=== PATIENT | male | born 1965 | race Caucasian/White ===

== ENCOUNTER 2017-04-24 13:08 | Emergency (ER) | payer OTHER ==
[2017-04-24 13:19] VITALS: BMI 26.4
[2017-04-24] MEDS ORDERED: ZOFRAN INJ 4 MG VIAL IVP ONE ×2 (13:23→14:52)
[2017-04-24] MEDS ORDERED: MORPHINE SULFATE INJ 4 MG IVP ONE ×2 (13:23→14:53)
[2017-04-24] MEDS ORDERED: NITROSTAT SL PRN (13:24)
--- NOTE | 2017-04-24 13:25 | DR.CP ---
HPI - Time Seen Time seen: 13:17 - HPI Comment HPI Comment: PATIENT PRESENTS TO ED VIA EMS FROM [facility] WITH PRECORDIAL CHEST PRESSURE, NON RADIATING ASSOCIATED WITH SOB AND NAUSEA. HISTORY CAD S/P CABG 5 YRS AGO. - Complaint Chief Complaint Doctor Comments: CHEST PAIN SINCE 11:00 AM TODAY. - Reviewed Nurses Notes Review: Yes - Source History Provided: Patient, EMS - Mode of Arrival Mode of Arrival: EMS - Timing Came on: Suddenly Pain: Present Now - Duration Duration: Constant Duration: Hours - Location Location of Chest Pain: Left, Chest Chest Pain Radiation Location: None - Context Onset: At rest Cardiac Risk Factors: Smoker PE Risk Factors: None History of: Aspirin in last 24 hours, Other (CABG 5 YRS AGO.) Prehospital Care: Oxygen, IV, SL Nitro, ASA - Quality Quality: Pressure like - Severity Severity: Moderate - Modifying Factors Worsens: Nothing Impoves: Nothing - Associated Signs and Symptoms Associated Signs and Symptoms: Shortness of Breath, Palpitations, Nausea/ Vomiting ROS - Review of Systems Constitutional: Weakness, Fatigue. negative: Chills, Fever, Loss of Appetite Eyes: No Symptoms Reported. negative: Eye Pain, Discharge ENTM: No Symptoms Reported. negative: Ear Pain, Nose Discharge, Nose Congestion , Throat Pain Respiratoy: Short of Breath. negative: Productive Cough, Non-Productive Cough, Wheezing, Hemoptysis Cardiovascular: Palpitations. negative: Edema, Syncope Gastrointestinal/Abdominal: Nausea. negative: Abdominal Pain, Diarrhea, Vomiting Genitourinary: No Symptoms Reported. negative: Dysuria, Frequency, Hematuria Neurological: Weakness. negative: Headache, Dizziness Musculoskeletal: Muscle Pain Integumentary: No Symptoms Reported Hematologic/Lymphatic: No Symptoms Reported Endocrine: No Symptoms Reported All Other Systems: Reviewed and Negative PE - Vitals Vitals: Temperature 98.6 F Pulse Rate [Right Brachial] 83 Pulse Rate 112 Respiratory Rate 17 Blood Pressure [Right Arm] 119/78 Blood Pressure 127/66 O2 Sat by Pulse Oximetry 98 - General Limitations: No Limitations General Appearance: Alert - Head Head Exam: Normal Inspection - Eyes Eye exam: Normal Appearance - ENT ENT Exam: Normal External Ear Exam - Chest Chest Inspection: Symmetric Chest Wall Rise - Respiratory Respiratory Exam: Normal Lung Sounds Bilat Respiratory Exam: Bilateral Clear to Auscultation - Cardiovascular Cardiovascular Exam: Regular Rate, Normal Rhythm, Normal Heart Sounds Pulse: Normal, Radial, Femoral Edema: Normal - Abdominal Exam Abdominal Exam: Normal Bowel Sounds, Soft. negative: Tenderness - Extremities Extremities Exam: Normal Inspection. negative: Edema - Back Back Exam: Normal Inspection - Neurologic Neurological Exam: Alert, Oriented X3, CN II-XII Intact, Reflexes Normal. negative: Motor Sensory Deficit - Psychiatric Psychiatric Exam: Normal Affect, Normal Mood - Skin Skin Exam: Normal Color MDM - Differential Diagnosis Differential Diagnosis: Angina, Myocardial Infarction, Pericarditis, Pneumonia, Pneumothorax Course - Treatment Treatment: SEE ORDERS. - Consultation Consultation Comments: DISCUSS PATIENT WITH [facility]. PT ACCEPTED FOR TRANSFER BY DR. CASTRO. 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) ROR - Labs Reviewed Laboratory Results Reviewed?: Yes Result Diagrams: 04/24/17 13:33 04/24/17 13:33 Laboratory: WBC 7.7 X10^3/uL (3.6-10.0) 04/24/17 13:33 RBC 5.61 X10^6/uL (4.7-6.0) 04/24/17 13:33 Hgb 17.6 g/dL (13.5-18.0) 04/24/17 13:33 Hct 50.1 % (42.0-54.0) 04/24/17 13:33 MCV 89.2 fL (80.0-100.0) 04/24/17 13:33 MCH 31.3 pg (27.0-34.0) 04/24/17 13:33 MCHC 35.1 g/dL (33.0-35.0) H 04/24/17 13:33 RDW 13.4 % (11.6-16.5) 04/24/17 13:33 Plt Count 178 X10^3/uL (150.0-450.0) 04/24/17 13:33 MPV 8.4 fL (7.4-11.0) 04/24/17 13:33 Neut % 65.9 % (42.0-75.0) 04/24/17 13:33 Lymph % 26.0 % (21.0-51.0) 04/24/17 13:33 Campbell % 6.4 % (0.0-13.0) 04/24/17 13:33 Eos % 0.9 % (0.9-2.9) 04/24/17 13:33 Baso % 0.8 % (0.2-1.0) 04/24/17 13:33 Neut # 5.1 x10^3/uL (2.2-4.8) H 04/24/17 13:33 Lymph # 2.0 X10^3/uL (1.3-2.9) 04/24/17 13:33 Campbell # 0.5 x10^3/uL (0.3-0.8) 04/24/17 13:33 Eos # 0.1 x10^3/uL (0.0-0.2) 04/24/17 13:33 Baso # 0.1 X10^3/uL (0.0-0.1) 04/24/17 13:33 Absolute Nucleated RBC 0.1 /100WBC 04/24/17 13:33 Sodium 138 mmol/L (136-145) 04/24/17 13:33 Corrected Sodium 141 mmol/L (136-145) 04/24/17 13:33 Potassium 4.0 mmol/L (3.5-5.1) 04/24/17 13:33 Chloride 103 mmol/L (98-107) 04/24/17 13:33 Carbon Dioxide 23.1 mmol/L (21-32) 04/24/17 13:33 BUN 27 mg/dL (7-18) H 04/24/17 13:33 Creatinine 1.29 mg/dL (0.70-1.30) 04/24/17 13:33 Est GFR (MDRD) Af Amer > 60 (>60) 04/24/17 13:33 Est GFR (MDRD) Non-Af > 60 (>60) 04/24/17 13:33 Glucose 234 mg/dL (65-99) H 04/24/17 13:33 Calcium 9.2 mg/dL (8.5-10.1) 04/24/17 13:33 Corrected Calcium TNP 04/24/17 13:33 Total Bilirubin 1.40 mg/dL (0.2-1.0) H 04/24/17 13:33 AST 25 Units/L (15-37) 04/24/17 13:33 ALT 56 Units/L (12-78) 04/24/17 13:33 Alkaline Phosphatase 64 Units/L (46-116) 04/24/17 13:33 Creatine Kinase 68 Units/L (39-308) 04/24/17 17:45 CK-MB (CK-2) 1.2 ng/mL (0-4.0) 04/24/17 17:45 CK/CKMB % Calc 1.8 % (<4) 04/24/17 17:45 Troponin I < 0.02 ng/mL (0-1.5) 04/24/17 17:45 B-Natriuretic Peptide < 5.0 pg/mL (0-79) 04/24/17 13:33 Total Protein 7.6 g/dL (6.4-8.2) 04/24/17 13:33 Albumin 3.7 g/dL (3.4-5.0) 04/24/17 13:33 Globulin 3.9 g/dL (2.5-4.5) 04/24/17 13:33 Albumin/Globulin Ratio 0.9 Ratio (1.1-2.1) L 04/24/17 13:33 - XRAY XRAY Interpreted by: Radiologist XRAY Findings: REPORT DISCUSS WITH PATIENT. - EKG Rhythm: ST (EKG NOTED) - Diagnosis Discharge Problem: Chest pain Qualifiers: Chest pain type: precordial pain Qualified Code(s): R07.2 - Precordial pain CAD (coronary artery disease) Qualifiers: Coronary Disease-Associated Artery/Lesion type: unspecified vessel or lesion type [place] vs. transplanted heart: [place] heart Associated angina: with unspecified angina Qualified Code(s): I25.119 - Atherosclerotic heart disease of [place] coronary artery with unspecified angina pectoris - Discharge Plan Disposition: XFER SHT-TRM HOSP Condition: Stable - Follow ups/Referrals Follow ups/Referrals: NFD,None [Primary Care Provider] - 3 days - Instructions
[2017-04-24] MEDS ORDERED: NITROSTAT SL ONE (13:26)
[2017-04-24 13:39] LABS: BASOPHILS # (AUTO) 0.1 X10^3/uL (0.0-0.1); BASOPHILS % (AUTO) 0.8 % (0.2-1.0); EOSINOPHILS # (AUTO) 0.1 x10^3/uL (0.0-0.2); EOSINOPHILS % (AUTO) 0.9 % (0.9-2.9); HEMATOCRIT 50.1 % (42.0-54.0); HEMOGLOBIN 17.6 g/dL (13.5-18.0); MEAN CORPUSCULAR HEMOGLOBIN 31.3 pg (27.0-34.0); MEAN CORPUSCULAR HGB CONC 35.1 g/dL (33.0-35.0); MEAN CORPUSCULAR VOLUME 89.2 fL (80.0-100.0); MEAN PLATELET VOLUME 8.4 fL (7.4-11.0); MONOCYTES # (AUTO) 0.5 x10^3/uL (0.3-0.8); MONOCYTES % (AUTO) 6.4 % (0.0-13.0); NEUTROPHILS # (AUTO) 5.1 x10^3/uL (2.2-4.8); NEUTROPHILS % (AUTO) 65.9 % (42.0-75.0); PLATELET COUNT 178 X10^3/uL (150.0-450.0); RED BLOOD COUNT 5.61 X10^6/uL (4.7-6.0); RED CELL DISTRIBUTION WIDTH 13.4 % (11.6-16.5); WHITE BLOOD COUNT 7.7 X10^3/uL (3.6-10.0)
[2017-04-24] MEDS ORDERED: ZOFRAN INJ 4 MG VIAL ONE (13:43)
[2017-04-24] MEDS ORDERED: MORPHINE SULFATE INJ 4 MG ONE ×2 (13:43→14:50)
--- NOTE | 2017-04-24 13:44 | RAD ---
HISTORY: Chest pain Study: Chest one view Comparison: None Findings: The trachea is midline. The cardiac silhouette is unremarkable. The lungs are clear without focal infiltrate or effusion. The bony thorax is unremarkable. The patient is status post median sternot harrison and CABG. IMPRESSION: 1. No acute cardiopulmonary disease. Reported By:
[2017-04-24 13:55] LABS: BLOOD UREA NITROGEN 27 mg/dL (7-18); CALCIUM 9.2 mg/dL (8.5-10.1); CARBON DIOXIDE 23.1 mmol/L (21-32); CHLORIDE 103 mmol/L (98-107); COR NA(FOR HYPERGLY) 141 mmol/L (136-145); CREATININE 1.29 mg/dL (0.70-1.30); GLUCOSE 234 mg/dL (65-99); SODIUM 138 mmol/L (136-145); TROPONIN I < 0.02 ng/mL (0-1.5); eGFR BLACK RACES > 60 (>60); eGFR NON BLACK RACES > 60 (>60)
[2017-04-24 14:00] LABS: ALANINE AMINOTRANSFERASE 56 Units/L (12-78); ALBUMIN 3.7 g/dL (3.4-5.0); ALKALINE PHOSPHATASE 64 Units/L (46-116); ASPARTATE AMINO TRANSFERASE 25 Units/L (15-37); CKMB % 1.8 % (<4); CREATINE KINASE 79 Units/L (39-308); CREATINE KINASE MB 1.4 ng/mL (0-4.0); TOTAL PROTEIN 7.6 g/dL (6.4-8.2)
[2017-04-24 14:05] LABS: B-TYPE NATRIURETIC PEPTIDE < 5.0 pg/mL (0-79)
[2017-04-24] MEDS ORDERED: PROTONIX INJ 40 MG VIAL IVP ONE (15:44)
[2017-04-24] MEDS ORDERED: NITROGLYCERIN IV PREMIX 50 MG 50 MG/250 ML BAG IV ONE (15:47)
[2017-04-24] MEDS ORDERED: PROTONIX INJ 40 MG VIAL ONE (15:48)
[2017-04-24] MEDS ORDERED: LOVENOX INJ 100 MG SYR SC ONE (15:48)
[2017-04-24] MEDS: NITROGLYCERIN IV PREMIX 50 MG 50 MG/250 ML BAG IV PRN ×2 (15:57→17:33)
[2017-04-24] MEDS ORDERED: LOVENOX INJ 100 MG SYR SC SCH (16:00)
[2017-04-24 18:12] VITALS: BP 119/78
[2017-04-24 18:19] LABS: CKMB % 1.8 % (<4); CREATINE KINASE 68 Units/L (39-308); CREATINE KINASE MB 1.2 ng/mL (0-4.0); TROPONIN I < 0.02 ng/mL (0-1.5)
[2017-04-24] MEDS ORDERED: DILAUDID INJ ONE (19:18)
[2017-04-24] MEDS ORDERED: DILAUDID INJ IVP ONE (19:19)
== END 2017-04-24 19:25 | disposition short-term general hospital (02) ==
LOC: ER 13:16
DX: I25.119 Atherosclerotic heart disease of native coronary artery with unspecified angina pectoris (principal); R07.2 Precordial pain
CPT/HCPCS: 36415; 71010; 80053; 82550; 82553; 83880; 84484; 85025; 93005; 93010; 96365; 96367; 96372; 96374; 96375; 99284; 99285; C9113; J1170; J1650; J2270; J2405